=== PATIENT | male | born 1960 | race Asian ===

== ENCOUNTER 2020-11-03 08:51 | Inpatient (IN) | payer OTHER ==
[2020-11-03] MEDS ORDERED: ACETAMINOPHEN INJECTION 100 ML IVPB ONE ×2 (09:06→23:08)
[2020-11-03] MEDS ORDERED: PIPERACILLIN/TAZOB 3.375 GM 3.375 GM in DEXTROSE 5%-WATER - 50 ML IVPB ONE (09:10)
[2020-11-03] MEDS ORDERED: VANCOMYCIN 1 GM in D5W (PRE-DOCKED) 1,000 MG/250 ML IVPB ONE (09:10)
[2020-11-03] MEDS ORDERED: LORazepam 2 MG/ML SDV VIAL ONE (09:25)
[2020-11-03] MEDS ORDERED: PIPERACILLIN/TAZOB 3.375 GM 3.375 GM/50 ML BAG IVPB ONE ×2 (09:28→20:35)
[2020-11-03] MEDS ORDERED: LORazepam 2 MG/ML SDV VIAL IVPUSH ONE (09:28)
[2020-11-03] MEDS ORDERED: LACTATED RINGERS SOLUTION 1000 ML INFUS.BAG IV ONE ×2 (09:28→12:02)
[2020-11-03 10:27] LABS: BASO % 0.2 % (0-2.0); HEMATOCRIT 34.9 % (35.4-49); HEMOGLOBIN 11.4 GM/dL (11.7-16.9); LYMPH % 10.1 % (8-40); MCH 29.9 pg (25.7-33.7); MCHC 32.6 g/dl (32.0-35.9); MEAN CELL VOLUME 91.7 fl (80-96); MEAN PLT VOLUME 8.3 fl (7.5-11.1); MONO % 0.3 % (3.8-10.2); NEUT % 89.4 % (42.8-82.8); PLATELET COUNT 322 K/MM3 (134-434); RDW 13.8 % (11.9-15.9); WHITE BLOOD COUNT 11.9 K/mm3 (4.0-10.0)
[2020-11-03 10:43] LABS: INR 1.18 (0.83-1.09); PROTHROMBIN TIME (PATIENT) 14.4 SEC (9.7-13.0)
[2020-11-03 10:46] LABS: ACTIVATED PTT 50.7 SECONDS (25.2-36.5)
[2020-11-03 10:48] LABS: VENOUS BASE EXCESS -0.8 mmol/L (-2-2); VENOUS O2 SATURATION 62.9 % (70-80); VENOUS PCO2 42.2 mmHg (38-52); VENOUS PH 7.379 (7.310-7.410)
[2020-11-03 10:53] LABS: CHLORIDE 111 mmol/L (98-107); POTASSIUM 3.8 mmol/L (3.5-5.1); SODIUM 147 mmol/L (136-145)
[2020-11-03 10:54] LABS: CALCIUM 8.3 mg/dL (8.5-10.1)
[2020-11-03 10:55] LABS: ALBUMIN 2.2 g/dl (3.4-5.0); ANION GAP 9 MMOL/L (8-16); BLOOD UREA NITROGEN 41.5 mg/dL (7-18); CO2 26 mmol/L (21-32); GLUCOSE,RANDOM 193 mg/dL (74-106); MAGNESIUM 2.4 mg/dL (1.8-2.4)
[2020-11-03 10:58] LABS: PHOSPHOROUS 2.2 mg/dL (2.5-4.9); SGOT/AST 203 U/L (15-37); SGPT/ALT 223 U/L (13-61)
[2020-11-03 11:00] LABS: BILIRUBIN,TOTAL 0.9 mg/dL (0.2-1); TOT PROT 7.2 g/dl (6.4-8.2)
[2020-11-03 11:01] LABS: ALK PHOS 303 U/L (45-117)
[2020-11-03 11:03] LABS: N-TERMINAL BNP 352.6 pg/ml (5-125)
[2020-11-03 11:16] LABS: EPI CELLS 1 /uL (0-25.1); HYALINE CASTS 1 /uL (0-3.1); URINE APPEARANCE CLOUDY; URINE BILIRUBIN 1+ (NEGATIVE); URINE COLOR DK YELLOW; URINE GLUCOSE (UA) NEGATIVE (NEGATIVE); URINE KETONE NEGATIVE (NEGATIVE); URINE LEUK ESTERASE 3+ (NEGATIVE); URINE NITRITE POSITIVE (NEGATIVE); URINE PROTEIN 1+ (NEGATIVE); URINE RBC 3854 /uL (0-23.9); URINE WBC 542 /uL (0-25.8)
[2020-11-03 12:31] LABS: LDH 509 U/L (87-246)
[2020-11-03] MEDS ORDERED: LACTATED RINGERS SOLUTION 1,000 ML/1,000 ML INFUS.BAG IV SCH (13:45)
[2020-11-03 13:51] LABS: ANISOCYTOSIS 1+; MACROCYTOSIS 1+; PLATELET ESTIMATE NORMAL
[2020-11-03] MEDS ORDERED: LACTATED RINGERS SOLUTION 1,000 ML IV SCH ×2 (14:45→17:54)
[2020-11-03] MEDS: PIPERACILLIN/TAZOB 3.375 GM 3.375 GM in DEXTROSE 5%-WATER - 50 ML IVPB SCH (20:43)
[2020-11-03] MEDS ORDERED: HEPARIN NA (PORCINE) 5,000 UNITS/ML 1ML VIAL SQ SCH (22:00)
[2020-11-03] MEDS ORDERED: HEPARIN NA (PORCINE) 5,000 UNITS/ML 1ML VIAL ONE (22:14)
[2020-11-03] MEDS ORDERED: ACETAMINOPHEN 1000 MG/100 ML VIAL (NON FORMULARY) IVPB ONE (22:54)
[2020-11-04] MEDS ORDERED: PIPERACILLIN/TAZOBACTAM 3.375 GM VIAL IVPB ONE ×2 (01:16→09:54)
[2020-11-04] MEDS ORDERED: DEXTROSE 5%-WATER - 50 ML IVPB ONE ×4 (01:16→16:05)
[2020-11-04] MEDS ORDERED: FLU VACCINE (FLULAVAL) PF 60 MCG/0.5 ML SYRINGE 2020-2021 IM ONE (02:11)
[2020-11-04] MEDS: LACTATED RINGERS SOLUTION 1,000 ML IV SCH (02:30)
[2020-11-04] MEDS: PIPERACILLIN/TAZOB 3.375 GM 3.375 GM in DEXTROSE 5%-WATER - 50 ML IVPB SCH (02:45)
[2020-11-04] MEDS: MUPIROCIN 2% TOPICAL OINTMENT FOR DECOLONIZATION NS SCH ×3 (03:30→21:43)
[2020-11-04 07:26] LABS: BASO % 0.2 % (0-2.0); HEMOGLOBIN 10.2 GM/dL (11.7-16.9); LYMPH % 1.4 % (8-40); MCH 28.8 pg (25.7-33.7); MCHC 31.8 g/dl (32.0-35.9); MEAN CELL VOLUME 90.6 fl (80-96); MEAN PLT VOLUME 8.3 fl (7.5-11.1); MONO % 1.5 % (3.8-10.2); NEUT % 96.9 % (42.8-82.8); PLATELET COUNT 230 K/MM3 (134-434); RBC 3.53 M/mm3 (4.00-5.60)
[2020-11-04 07:45] LABS: WHITE BLOOD COUNT 42.6 K/mm3 (4.0-10.0)
[2020-11-04 07:55] LABS: POTASSIUM 4.7 mmol/L (3.5-5.1)
[2020-11-04 07:59] LABS: ALBUMIN 1.9 g/dl (3.4-5.0)
[2020-11-04 08:00] LABS: CALCIUM 7.6 mg/dL (8.5-10.1)
[2020-11-04 08:02] LABS: MAGNESIUM 2.1 mg/dL (1.8-2.4)
[2020-11-04 08:05] LABS: BILIRUBIN,TOTAL 0.7 mg/dL (0.2-1); CREATININE 4.2 mg/dL (0.55-1.3)
[2020-11-04 08:06] LABS: TOT PROT 5.8 g/dl (6.4-8.2)
[2020-11-04 08:11] LABS: BLOOD UREA NITROGEN 68.4 mg/dL (7-18)
[2020-11-04 09:21] LABS: ANISOCYTOSIS 0; HELMET CELLS 0; HOWELL-JOLLY BODIES 0; MACROCYTOSIS 0; OVALOCYTE 0; PLATELET ESTIMATE NORMAL; ROULEAU 0; SICKELED CELLS 0; TARGET CELLS 0; TEAR DROP CELLS 0; TOXIC GRANULATION 0
[2020-11-04] MEDS ORDERED: PIPERACILLIN/TAZOB 3.375 GM 3.375 GM in DEXTROSE 5%-WATER - 50 ML IVPB SCH ×3 (10:00→18:00)
[2020-11-04] MEDS: HEPARIN NA (PORCINE) 5,000 UNITS/ML 1ML VIAL SQ SCH ×2 (10:13→21:43)
[2020-11-04] MEDS ORDERED: PIPERACILLIN/TAZOBACTAM 2.25 GM VIAL IVPB ONE ×2 (10:28→16:05)
[2020-11-04] MEDS: PIPERACILLIN/TAZOB 2.25 GM 2.25 GM in DEXTROSE 5%-WATER - 50 ML IVPB SCH ×2 (10:30→18:04)
[2020-11-04] MEDS: CHLORHEXIDINE GLUCONATE 4% CLEANSER FOR DECOLONIZATION TP SCH (21:43)
[2020-11-05] MEDS ORDERED: DEXTROSE 5%-WATER - 50 ML IVPB ONE ×2 (01:25→10:06)
[2020-11-05] MEDS ORDERED: PIPERACILLIN/TAZOBACTAM 2.25 GM VIAL IVPB ONE ×2 (01:25→10:06)
[2020-11-05] MEDS: PIPERACILLIN/TAZOB 2.25 GM 2.25 GM in DEXTROSE 5%-WATER - 50 ML IVPB SCH ×2 (01:34→10:20)
[2020-11-05] MEDS: LACTATED RINGERS SOLUTION 1,000 ML IV SCH ×2 (01:35→10:21)
[2020-11-05] MEDS ORDERED: SCOPOLAMINE HYDROBROMIDE 1 PATCH PATCH.TD72 TD SCH (10:00)
[2020-11-05] MEDS: HEPARIN NA (PORCINE) 5,000 UNITS/ML 1ML VIAL SQ SCH ×2 (10:21→22:00)
[2020-11-05] MEDS: MUPIROCIN 2% TOPICAL OINTMENT FOR DECOLONIZATION NS SCH ×2 (10:21→22:00)
[2020-11-05] MEDS ORDERED: MEROPENEM 500 MG in DEXTROSE 5%-WATER 100 ML IVPB ONE (10:45)
[2020-11-05] MEDS ORDERED: MEROPENEM 500 MG VIAL (RESTRICTED TO ID) IVPB ONE (11:15)
[2020-11-05] MEDS ORDERED: DEXTROSE 5%-WATER 100 ML IVPB ONE (11:15)
[2020-11-05 12:17] LABS: BASO % 1.1 % (0-2.0); EOS % 0.4 % (0-4.5); HEMATOCRIT 26.9 % (35.4-49); HEMOGLOBIN 8.8 GM/dL (11.7-16.9); MCH 29.2 pg (25.7-33.7); MCHC 32.7 g/dl (32.0-35.9); MEAN CELL VOLUME 89.2 fl (80-96); MEAN PLT VOLUME 8.5 fl (7.5-11.1); MONO % 1.5 % (3.8-10.2); PLATELET COUNT 173 K/MM3 (134-434); RBC 3.01 M/mm3 (4.00-5.60); RDW 13.8 % (11.9-15.9); WHITE BLOOD COUNT 25.7 K/mm3 (4.0-10.0)
[2020-11-05 12:34] LABS: POTASSIUM 4.6 mmol/L (3.5-5.1)
[2020-11-05 12:36] LABS: CALCIUM 7.5 mg/dL (8.5-10.1)
[2020-11-05 12:37] LABS: ALBUMIN 1.6 g/dl (3.4-5.0); MAGNESIUM 2.8 mg/dL (1.8-2.4)
[2020-11-05 12:40] LABS: CREATININE 5.9 mg/dL (0.55-1.3); PHOSPHOROUS 6.7 mg/dL (2.5-4.9)
[2020-11-05 12:41] LABS: BILIRUBIN,TOTAL 0.5 mg/dL (0.2-1)
[2020-11-05 13:14] LABS: BLOOD UREA NITROGEN 107.2 mg/dL (7-18)
[2020-11-05 13:29] LABS: ANISOCYTOSIS 1+; MACROCYTOSIS 1+; PLATELET ESTIMATE NORMAL
[2020-11-05] MEDS: CHLORHEXIDINE GLUCONATE 4% CLEANSER FOR DECOLONIZATION TP SCH (22:00)
[2020-11-06 06:55] LABS: BASO % 0.3 % (0-2.0); EOS % 1.3 % (0-4.5); HEMATOCRIT 29.6 % (35.4-49); HEMOGLOBIN 9.8 GM/dL (11.7-16.9); LYMPH % 4.7 % (8-40); MCH 29.4 pg (25.7-33.7); MCHC 33.2 g/dl (32.0-35.9); MEAN CELL VOLUME 88.7 fl (80-96); NEUT % 91.7 % (42.8-82.8); PLATELET COUNT 192 K/MM3 (134-434); RBC 3.34 M/mm3 (4.00-5.60); WHITE BLOOD COUNT 21.1 K/mm3 (4.0-10.0)
[2020-11-06 07:13] LABS: POTASSIUM 4.8 mmol/L (3.5-5.1)
[2020-11-06 07:17] LABS: ALBUMIN 1.7 g/dl (3.4-5.0); CALCIUM 7.6 mg/dL (8.5-10.1)
[2020-11-06 07:21] LABS: CREATININE 6.6 mg/dL (0.55-1.3)
[2020-11-06 07:22] LABS: BILIRUBIN,TOTAL 0.6 mg/dL (0.2-1); TOT PROT 5.4 g/dl (6.4-8.2)
[2020-11-06] MEDS ORDERED: MEROPENEM 500 MG in DEXTROSE 5%-WATER 100 ML IVPB ONE (09:30)
[2020-11-06] MEDS ORDERED: MEROPENEM 500 MG VIAL (RESTRICTED TO ID) IVPB ONE (09:41)
[2020-11-06] MEDS ORDERED: DEXTROSE 5%-WATER 100 ML IVPB ONE (09:41)
[2020-11-06] MEDS: HEPARIN NA (PORCINE) 5,000 UNITS/ML 1ML VIAL SQ SCH ×2 (09:44→21:27)
[2020-11-06] MEDS: MUPIROCIN 2% TOPICAL OINTMENT FOR DECOLONIZATION NS SCH ×2 (09:44→21:27)
[2020-11-06 09:59] LABS: ANISOCYTOSIS 0; MACROCYTOSIS 0; PLATELET ESTIMATE NORMAL
[2020-11-06 20:10] LABS: HEP B CORE AB, TOT Negative (Negative)
[2020-11-06] MEDS: ALBUTEROL SO4 2.5/IPRATROPIUM 0.5 INH SOL 3 ML VIAL.NEB. NEB SCH (20:30)
[2020-11-06] MEDS: CHLORHEXIDINE GLUCONATE 4% CLEANSER FOR DECOLONIZATION TP SCH (21:27)
[2020-11-07 06:59] LABS: BASO % 0.1 % (0-2.0); HEMOGLOBIN 10.2 GM/dL (11.7-16.9); LYMPH % 6.2 % (8-40); MCH 29.3 pg (25.7-33.7); MCHC 32.8 g/dl (32.0-35.9); MEAN CELL VOLUME 89.2 fl (80-96); MEAN PLT VOLUME 9.2 fl (7.5-11.1); MONO % 3.5 % (3.8-10.2); NEUT % 88.2 % (42.8-82.8); PLATELET COUNT 195 K/MM3 (134-434); RBC 3.47 M/mm3 (4.00-5.60); RDW 13.8 % (11.9-15.9)
[2020-11-07 07:21] LABS: POTASSIUM 5.3 mmol/L (3.5-5.1)
[2020-11-07 07:26] LABS: ALBUMIN 1.7 g/dl (3.4-5.0)
[2020-11-07 07:29] LABS: CREATININE 6.9 mg/dL (0.55-1.3)
[2020-11-07 07:30] LABS: BILIRUBIN,TOTAL 0.5 mg/dL (0.2-1); TOT PROT 5.3 g/dl (6.4-8.2)
[2020-11-07 07:33] LABS: BLOOD UREA NITROGEN 131.2 mg/dL (7-18)
[2020-11-07] MEDS: ALBUTEROL SO4 2.5/IPRATROPIUM 0.5 INH SOL 3 ML VIAL.NEB. NEB SCH ×3 (08:10→20:35)
[2020-11-07] MEDS ORDERED: MEROPENEM 500 MG VIAL (RESTRICTED TO ID) IVPB ONE (09:33)
[2020-11-07] MEDS ORDERED: DEXTROSE 5%-WATER 100 ML IVPB ONE (09:33)
[2020-11-07] MEDS: MEROPENEM 500 MG in DEXTROSE 5%-WATER 100 ML IVPB SCH (09:37)
[2020-11-07] MEDS: PANTOPRAZOLE SODIUM 40 MG VIAL IVPUSH SCH (09:40)
[2020-11-07] MEDS: HEPARIN NA (PORCINE) 5,000 UNITS/ML 1ML VIAL SQ SCH ×2 (09:40→22:23)
[2020-11-07] MEDS: ASPIRIN 81 MG CHEWABLE TABLETS PEG SCH (09:40)
[2020-11-07] MEDS: MUPIROCIN 2% TOPICAL OINTMENT FOR DECOLONIZATION NS SCH ×2 (09:40→22:24)
[2020-11-07 09:44] LABS: ANISOCYTOSIS 0; MACROCYTOSIS 0; PLATELET ESTIMATE NORMAL
[2020-11-07] MEDS ORDERED: SODIUM CHLORIDE 250 ML IV PRN (11:16)
[2020-11-07 14:49] VITALS: BMI 27.1
[2020-11-07] MEDS: CHLORHEXIDINE GLUCONATE 4% CLEANSER FOR DECOLONIZATION TP SCH (22:23)
[2020-11-08] MEDS ORDERED: SODIUM CHLORIDE 250 ML IV PRN (06:45)
[2020-11-08] MEDS: ALBUTEROL SO4 2.5/IPRATROPIUM 0.5 INH SOL 3 ML VIAL.NEB. NEB SCH ×5 (08:00→20:35)
[2020-11-08 08:46] LABS: BASO % 0.3 % (0-2.0); EOS % 2.7 % (0-4.5); HEMATOCRIT 28.9 % (35.4-49); HEMOGLOBIN 9.8 GM/dL (11.7-16.9); LYMPH % 7.5 % (8-40); MEAN CELL VOLUME 88.1 fl (80-96); MEAN PLT VOLUME 9.1 fl (7.5-11.1); MONO % 3.8 % (3.8-10.2); NEUT % 85.7 % (42.8-82.8); PLATELET COUNT 219 K/MM3 (134-434); RBC 3.28 M/mm3 (4.00-5.60); RDW 13.3 % (11.9-15.9); WHITE BLOOD COUNT 9.6 K/mm3 (4.0-10.0)
[2020-11-08 09:23] LABS: CALCIUM 7.7 mg/dL (8.5-10.1)
[2020-11-08 09:24] LABS: CREATININE 5.2 mg/dL (0.55-1.3); PHOSPHOROUS 6.5 mg/dL (2.5-4.9)
[2020-11-08 09:25] LABS: BLOOD UREA NITROGEN 88.7 mg/dL (7-18); POTASSIUM 4.5 mmol/L (3.5-5.1)
[2020-11-08] MEDS ORDERED: MUPIROCIN 2% TOPICAL OINTMENT FOR DECOLONIZATION NS SCH (10:00)
[2020-11-08] MEDS ORDERED: MEROPENEM 500 MG VIAL (RESTRICTED TO ID) IVPB ONE (10:02)
[2020-11-08] MEDS ORDERED: DEXTROSE 5%-WATER 100 ML IVPB ONE (10:03)
[2020-11-08] MEDS: ASPIRIN 81 MG CHEWABLE TABLETS PEG SCH (10:42)
[2020-11-08] MEDS: HEPARIN NA (PORCINE) 5,000 UNITS/ML 1ML VIAL SQ SCH ×2 (10:43→22:36)
[2020-11-08] MEDS: MEROPENEM 500 MG in DEXTROSE 5%-WATER 100 ML IVPB SCH (10:44)
[2020-11-08] MEDS: PANTOPRAZOLE SODIUM 40 MG VIAL IVPUSH SCH (10:45)
[2020-11-08 11:13] LABS: ANISOCYTOSIS 0; MACROCYTOSIS 0; PLATELET ESTIMATE NORMAL
[2020-11-08 11:33] LABS: ALBUMIN 1.8 g/dl (3.4-5.0)
[2020-11-08 11:38] LABS: BILIRUBIN,TOTAL 0.4 mg/dL (0.2-1); TOT PROT 5.3 g/dl (6.4-8.2)
[2020-11-08] MEDS: SCOPOLAMINE HYDROBROMIDE 1 PATCH PATCH.TD72 TD SCH (11:40)
[2020-11-08] MEDS ORDERED: CHLORHEXIDINE GLUCONATE 4% CLEANSER FOR DECOLONIZATION TP SCH (22:00)
[2020-11-09] MEDS: ALBUTEROL SO4 2.5/IPRATROPIUM 0.5 INH SOL 3 ML VIAL.NEB. NEB SCH ×3 (08:15→20:51)
[2020-11-09 08:46] LABS: BASO % 0.2 % (0-2.0); EOS % 2.6 % (0-4.5); HEMATOCRIT 26.9 % (35.4-49); HEMOGLOBIN 8.9 GM/dL (11.7-16.9); LYMPH % 9.8 % (8-40); MCH 29.4 pg (25.7-33.7); MCHC 33.2 g/dl (32.0-35.9); MEAN CELL VOLUME 88.4 fl (80-96); MEAN PLT VOLUME 9.3 fl (7.5-11.1); MONO % 4.6 % (3.8-10.2); NEUT % 82.8 % (42.8-82.8); PLATELET COUNT 235 K/MM3 (134-434); RBC 3.05 M/mm3 (4.00-5.60); RDW 13.6 % (11.9-15.9); WHITE BLOOD COUNT 9.3 K/mm3 (4.0-10.0)
[2020-11-09 09:00] LABS: POTASSIUM 4.3 mmol/L (3.5-5.1)
[2020-11-09 09:11] LABS: BLOOD UREA NITROGEN 77.8 mg/dL (7-18); CALCIUM 7.9 mg/dL (8.5-10.1)
[2020-11-09 09:12] LABS: ALBUMIN 1.9 g/dl (3.4-5.0); MAGNESIUM 2.4 mg/dL (1.8-2.4)
[2020-11-09 09:14] LABS: CREATININE 4.4 mg/dL (0.55-1.3); PHOSPHOROUS 5.8 mg/dL (2.5-4.9)
[2020-11-09 09:15] LABS: BILIRUBIN,TOTAL 0.4 mg/dL (0.2-1); TOT PROT 5.3 g/dl (6.4-8.2)
[2020-11-09] MEDS ORDERED: MEROPENEM 500 MG VIAL (RESTRICTED TO ID) IVPB ONE (10:12)
[2020-11-09] MEDS ORDERED: DEXTROSE 5%-WATER 100 ML IVPB ONE (10:12)
[2020-11-09] MEDS: PANTOPRAZOLE SODIUM 40 MG VIAL IVPUSH SCH (10:15)
[2020-11-09] MEDS: HEPARIN NA (PORCINE) 5,000 UNITS/ML 1ML VIAL SQ SCH ×2 (10:15→21:14)
[2020-11-09] MEDS: ASPIRIN 81 MG CHEWABLE TABLETS PEG SCH (10:16)
[2020-11-09] MEDS: MEROPENEM 500 MG in DEXTROSE 5%-WATER 100 ML IVPB SCH (10:16)
[2020-11-09 11:24] LABS: ANISOCYTOSIS 0; MACROCYTOSIS 0; PLATELET ESTIMATE NORMAL
[2020-11-09] MEDS ORDERED: SODIUM CHLORIDE 1,000 ML IV SCH (12:45)
[2020-11-10] MEDS ORDERED: PT OWN MED DRAWER 7, Y5N ONE (06:47)
[2020-11-10] MEDS: ALBUTEROL SO4 2.5/IPRATROPIUM 0.5 INH SOL 3 ML VIAL.NEB. NEB SCH ×3 (08:20→20:05)
[2020-11-10 09:28] LABS: BASO % 0.3 % (0-2.0); HEMATOCRIT 25.3 % (35.4-49); HEMOGLOBIN 8.5 GM/dL (11.7-16.9); LYMPH % 12.2 % (8-40); MCH 29.9 pg (25.7-33.7); MCHC 33.6 g/dl (32.0-35.9); MEAN PLT VOLUME 9.1 fl (7.5-11.1); MONO % 4.6 % (3.8-10.2); NEUT % 80.9 % (42.8-82.8); PLATELET COUNT 264 K/MM3 (134-434); RBC 2.84 M/mm3 (4.00-5.60); RDW 13.5 % (11.9-15.9); WHITE BLOOD COUNT 9.5 K/mm3 (4.0-10.0)
[2020-11-10 09:42] LABS: POTASSIUM 4.4 mmol/L (3.5-5.1)
[2020-11-10 09:56] LABS: ALBUMIN 1.9 g/dl (3.4-5.0); CALCIUM 7.4 mg/dL (8.5-10.1)
[2020-11-10] MEDS: ASPIRIN 81 MG CHEWABLE TABLETS PEG SCH ×2 (10:00→10:05)
[2020-11-10] MEDS ORDERED: MEROPENEM 500 MG VIAL (RESTRICTED TO ID) IVPB ONE (10:00)
[2020-11-10 10:01] LABS: BILIRUBIN,TOTAL 0.5 mg/dL (0.2-1); TOT PROT 5.2 g/dl (6.4-8.2)
[2020-11-10] MEDS ORDERED: DEXTROSE 5%-WATER 100 ML IVPB ONE (10:01)
[2020-11-10] MEDS: MEROPENEM 500 MG in DEXTROSE 5%-WATER 100 ML IVPB SCH (10:04)
[2020-11-10] MEDS: HEPARIN NA (PORCINE) 5,000 UNITS/ML 1ML VIAL SQ SCH ×2 (10:05→21:04)
[2020-11-10] MEDS: PANTOPRAZOLE SODIUM 40 MG VIAL IVPUSH SCH (11:04)
[2020-11-10] MEDS ORDERED: SODIUM CHLORIDE 250 ML IV PRN (11:28)
[2020-11-10 11:46] LABS: ANISOCYTOSIS 0; MACROCYTOSIS 0; PLATELET ESTIMATE NORMAL
[2020-11-11] MEDS: ALBUTEROL SO4 2.5/IPRATROPIUM 0.5 INH SOL 3 ML VIAL.NEB. NEB SCH ×3 (08:20→20:58)
[2020-11-11 08:51] LABS: BASO % 0.3 % (0-2.0); EOS % 1.6 % (0-4.5); HEMATOCRIT 26.8 % (35.4-49); LYMPH % 11.2 % (8-40); MCH 29.8 pg (25.7-33.7); MCHC 33.5 g/dl (32.0-35.9); MEAN CELL VOLUME 88.9 fl (80-96); MEAN PLT VOLUME 8.9 fl (7.5-11.1); MONO % 4.9 % (3.8-10.2); PLATELET COUNT 298 K/MM3 (134-434); RBC 3.01 M/mm3 (4.00-5.60); RDW 13.4 % (11.9-15.9); WHITE BLOOD COUNT 8.1 K/mm3 (4.0-10.0)
[2020-11-11] MEDS ORDERED: MEROPENEM 500 MG VIAL (RESTRICTED TO ID) IVPB ONE (09:03)
[2020-11-11] MEDS ORDERED: PT OWN MED DRAWER 7, Y5N ONE (09:04)
[2020-11-11] MEDS ORDERED: DEXTROSE 5%-WATER 100 ML IVPB ONE (09:04)
[2020-11-11 09:06] LABS: POTASSIUM 3.8 mmol/L (3.5-5.1)
[2020-11-11] MEDS: MEROPENEM 500 MG in DEXTROSE 5%-WATER 100 ML IVPB SCH (09:12)
[2020-11-11] MEDS: ASPIRIN 81 MG CHEWABLE TABLETS PEG SCH (09:12)
[2020-11-11] MEDS: HEPARIN NA (PORCINE) 5,000 UNITS/ML 1ML VIAL SQ SCH ×2 (09:12→21:15)
[2020-11-11] MEDS: SCOPOLAMINE HYDROBROMIDE 1 PATCH PATCH.TD72 TD SCH (09:13)
[2020-11-11] MEDS: PANTOPRAZOLE SODIUM 40 MG VIAL IVPUSH SCH (09:13)
[2020-11-11 09:17] LABS: CALCIUM 7.7 mg/dL (8.5-10.1)
[2020-11-11 09:18] LABS: MAGNESIUM 2.3 mg/dL (1.8-2.4)
[2020-11-11 09:19] LABS: ALBUMIN 1.9 g/dl (3.4-5.0)
[2020-11-11 09:22] LABS: CREATININE 3.2 mg/dL (0.55-1.3); PHOSPHOROUS 4.9 mg/dL (2.5-4.9)
[2020-11-11 09:23] LABS: BILIRUBIN,TOTAL 0.3 mg/dL (0.2-1); TOT PROT 5.3 g/dl (6.4-8.2)
[2020-11-11 09:46] LABS: BLOOD UREA NITROGEN 47.1 mg/dL (7-18)
[2020-11-11 11:09] LABS: ANISOCYTOSIS 1+; MACROCYTOSIS 0; PLATELET ESTIMATE NORMAL
[2020-11-12] MEDS: ALBUTEROL SO4 2.5/IPRATROPIUM 0.5 INH SOL 3 ML VIAL.NEB. NEB SCH ×3 (08:30→20:10)
[2020-11-12 09:49] LABS: HEMATOCRIT 27.7 % (35.4-49); HEMOGLOBIN 9.3 GM/dL (11.7-16.9); MCHC 33.7 g/dl (32.0-35.9); MEAN CELL VOLUME 88.9 fl (80-96); MEAN PLT VOLUME 8.8 fl (7.5-11.1); PLATELET COUNT 372 K/MM3 (134-434); RBC 3.12 M/mm3 (4.00-5.60); RDW 13.8 % (11.9-15.9)
[2020-11-12 10:08] LABS: POTASSIUM 4.1 mmol/L (3.5-5.1)
[2020-11-12] MEDS ORDERED: DEXTROSE 5%-WATER 100 ML IVPB ONE (10:09)
[2020-11-12] MEDS ORDERED: MEROPENEM 500 MG VIAL (RESTRICTED TO ID) IVPB ONE (10:09)
[2020-11-12] MEDS ORDERED: PT OWN MED DRAWER 7, Y5N ONE (10:09)
[2020-11-12] MEDS: MEROPENEM 500 MG in DEXTROSE 5%-WATER 100 ML IVPB SCH (10:14)
[2020-11-12] MEDS: PANTOPRAZOLE SODIUM 40 MG VIAL IVPUSH SCH (10:15)
[2020-11-12] MEDS: HEPARIN NA (PORCINE) 5,000 UNITS/ML 1ML VIAL SQ SCH ×2 (10:16→21:00)
[2020-11-12] MEDS: ASPIRIN 81 MG CHEWABLE TABLETS PEG SCH (10:17)
[2020-11-12] MEDS: ACETAMINOPHEN 650 MG/20.3 ML ORAL SOLUTION (CUPS) GT PRN (10:24)
[2020-11-12 10:26] LABS: CALCIUM 8.4 mg/dL (8.5-10.1)
[2020-11-12 10:30] LABS: CREATININE 3.7 mg/dL (0.55-1.3)
[2020-11-12 10:31] LABS: TOT PROT 5.6 g/dl (6.4-8.2)
[2020-11-12 10:47] LABS: BILIRUBIN,TOTAL 0.2 mg/dL (0.2-1)
[2020-11-13] MEDS ORDERED: SODIUM CHLORIDE 250 ML IV PRN ×2 (00:01)
[2020-11-13] MEDS: ALBUTEROL SO4 2.5/IPRATROPIUM 0.5 INH SOL 3 ML VIAL.NEB. NEB SCH ×3 (07:55→20:05)
[2020-11-13 07:57] LABS: HEMATOCRIT 25.9 % (35.4-49); HEMOGLOBIN 8.6 GM/dL (11.7-16.9); MCH 29.9 pg (25.7-33.7); MCHC 33.4 g/dl (32.0-35.9); MEAN CELL VOLUME 89.6 fl (80-96); MEAN PLT VOLUME 8.7 fl (7.5-11.1); PLATELET COUNT 370 K/MM3 (134-434); RBC 2.89 M/mm3 (4.00-5.60); WHITE BLOOD COUNT 8.4 K/mm3 (4.0-10.0)
[2020-11-13 08:24] LABS: CALCIUM 8.3 mg/dL (8.5-10.1)
[2020-11-13 08:28] LABS: CREATININE 3.8 mg/dL (0.55-1.3)
[2020-11-13 08:30] LABS: BILIRUBIN,TOTAL 0.4 mg/dL (0.2-1); TOT PROT 5.4 g/dl (6.4-8.2)
[2020-11-13] MEDS ORDERED: MEROPENEM 500 MG VIAL (RESTRICTED TO ID) IVPB ONE (10:45)
[2020-11-13] MEDS ORDERED: DEXTROSE 5%-WATER 100 ML IVPB ONE (10:46)
[2020-11-13] MEDS: ASPIRIN 81 MG CHEWABLE TABLETS PEG SCH (10:52)
[2020-11-13] MEDS: PANTOPRAZOLE SODIUM 40 MG VIAL IVPUSH SCH (11:45)
[2020-11-13] MEDS: MEROPENEM 500 MG in DEXTROSE 5%-WATER 100 ML IVPB SCH (11:45)
[2020-11-13] MEDS: HEPARIN NA (PORCINE) 5,000 UNITS/ML 1ML VIAL SQ SCH (11:47)
[2020-11-13] MEDS: APIXABAN 5 MG TABLET PO SCH ×2 (13:38→21:44)
[2020-11-13] MEDS ORDERED: PT OWN MED DRAWER 7, Y5N ONE (16:03)
[2020-11-13] MEDS: VANCOMYCIN 250 MG/5 ML ORAL SOLUTION PO SCH ×2 (18:20→23:41)
[2020-11-14] MEDS: VANCOMYCIN 250 MG/5 ML ORAL SOLUTION PO SCH (05:05)
[2020-11-14] MEDS: ALBUTEROL SO4 2.5/IPRATROPIUM 0.5 INH SOL 3 ML VIAL.NEB. NEB SCH ×3 (09:00→21:55)
[2020-11-14] MEDS ORDERED: MEROPENEM 500 MG VIAL (RESTRICTED TO ID) IVPB ONE (09:16)
[2020-11-14] MEDS ORDERED: DEXTROSE 5%-WATER 100 ML IVPB ONE (09:17)
[2020-11-14] MEDS ORDERED: PT OWN MED DRAWER 7, Y5N ONE (09:17)
[2020-11-14] MEDS: PANTOPRAZOLE SODIUM 40 MG VIAL IVPUSH SCH (09:26)
[2020-11-14] MEDS: ASPIRIN 81 MG CHEWABLE TABLETS PEG SCH (09:28)
[2020-11-14] MEDS: SCOPOLAMINE HYDROBROMIDE 1 PATCH PATCH.TD72 TD SCH (09:29)
[2020-11-14] MEDS: APIXABAN 5 MG TABLET PO SCH ×2 (09:29→23:28)
[2020-11-14] MEDS: MEROPENEM 500 MG in DEXTROSE 5%-WATER 100 ML IVPB SCH (09:33)
[2020-11-14 10:43] LABS: BLOOD UREA NITROGEN 41.7 mg/dL (7-18)
[2020-11-14] MEDS: VANCOMYCIN 250 MG/5 ML ORAL SOLUTION PEG SCH ×3 (13:31→23:31)
[2020-11-14] MEDS: ACETAMINOPHEN 650 MG/20.3 ML ORAL SOLUTION (CUPS) GT PRN (13:36)
[2020-11-15] MEDS: VANCOMYCIN 250 MG/5 ML ORAL SOLUTION PEG SCH ×4 (05:09→23:10)
[2020-11-15 09:02] LABS: POTASSIUM 4.2 mmol/L (3.5-5.1)
[2020-11-15 09:04] LABS: ALBUMIN 2.1 g/dl (3.4-5.0); BLOOD UREA NITROGEN 50.5 mg/dL (7-18); CALCIUM 8.9 mg/dL (8.5-10.1)
[2020-11-15 09:08] LABS: CREATININE 3.3 mg/dL (0.55-1.3)
[2020-11-15 09:10] LABS: BILIRUBIN,TOTAL 0.2 mg/dL (0.2-1); TOT PROT 5.8 g/dl (6.4-8.2)
[2020-11-15 09:17] LABS: BASO % 0.3 % (0-2.0); EOS % 1.6 % (0-4.5); HEMATOCRIT 25.8 % (35.4-49); HEMOGLOBIN 8.8 GM/dL (11.7-16.9); LYMPH % 8.6 % (8-40); MCH 30.1 pg (25.7-33.7); MEAN CELL VOLUME 88.7 fl (80-96); MEAN PLT VOLUME 8.2 fl (7.5-11.1); MONO % 4.7 % (3.8-10.2); NEUT % 84.8 % (42.8-82.8); PLATELET COUNT 395 K/MM3 (134-434); RBC 2.91 M/mm3 (4.00-5.60); RDW 13.8 % (11.9-15.9); WHITE BLOOD COUNT 8.4 K/mm3 (4.0-10.0)
[2020-11-15] MEDS ORDERED: MEROPENEM 500 MG VIAL (RESTRICTED TO ID) IVPB ONE (09:54)
[2020-11-15] MEDS ORDERED: DEXTROSE 5%-WATER 100 ML IVPB ONE (09:54)
[2020-11-15] MEDS: MEROPENEM 500 MG in DEXTROSE 5%-WATER 100 ML IVPB SCH (09:57)
[2020-11-15] MEDS: APIXABAN 5 MG TABLET PO SCH ×2 (09:57→21:32)
[2020-11-15] MEDS: ASPIRIN 81 MG CHEWABLE TABLETS PEG SCH (09:58)
[2020-11-15 11:33] LABS: ANISOCYTOSIS 3+; MACROCYTOSIS 0; PLATELET ESTIMATE NORMAL
[2020-11-15] MEDS: SILVER SULFADIAZINE 1% TOP CREAM 50 GM JAR TP SCH (11:51)
[2020-11-15] MEDS: PANTOPRAZOLE SODIUM 40 MG VIAL IVPUSH SCH (11:51)
[2020-11-15] MEDS: ALBUTEROL SO4 2.5/IPRATROPIUM 0.5 INH SOL 3 ML VIAL.NEB. NEB SCH ×2 (13:42→20:44)
[2020-11-16] MEDS: VANCOMYCIN 250 MG/5 ML ORAL SOLUTION PEG SCH ×4 (06:13→23:13)
[2020-11-16] MEDS: ALBUTEROL SO4 2.5/IPRATROPIUM 0.5 INH SOL 3 ML VIAL.NEB. NEB SCH ×4 (07:35→20:35)
[2020-11-16 09:33] LABS: BASO % 0.3 % (0-2.0); EOS % 1.3 % (0-4.5); HEMATOCRIT 25.2 % (35.4-49); HEMOGLOBIN 8.6 GM/dL (11.7-16.9); LYMPH % 12.2 % (8-40); MCH 30.1 pg (25.7-33.7); MCHC 34.2 g/dl (32.0-35.9); MEAN CELL VOLUME 87.9 fl (80-96); MONO % 5.3 % (3.8-10.2); NEUT % 80.9 % (42.8-82.8); PLATELET COUNT 380 K/MM3 (134-434); RBC 2.87 M/mm3 (4.00-5.60); RDW 13.6 % (11.9-15.9); WHITE BLOOD COUNT 7.5 K/mm3 (4.0-10.0)
[2020-11-16 09:57] LABS: POTASSIUM 4.4 mmol/L (3.5-5.1)
[2020-11-16 10:12] LABS: BLOOD UREA NITROGEN 57.4 mg/dL (7-18); CALCIUM 8.9 mg/dL (8.5-10.1)
[2020-11-16 10:14] LABS: ALBUMIN 2.1 g/dl (3.4-5.0)
[2020-11-16 10:16] LABS: CREATININE 3.1 mg/dL (0.55-1.3)
[2020-11-16 10:18] LABS: BILIRUBIN,TOTAL 0.2 mg/dL (0.2-1)
[2020-11-16 10:19] LABS: TOT PROT 5.6 g/dl (6.4-8.2)
[2020-11-16] MEDS ORDERED: MEROPENEM 500 MG VIAL (RESTRICTED TO ID) IVPB ONE (10:44)
[2020-11-16] MEDS ORDERED: PT OWN MED DRAWER 7, Y5N ONE (10:45)
[2020-11-16] MEDS ORDERED: DEXTROSE 5%-WATER 100 ML IVPB ONE (10:45)
[2020-11-16] MEDS: MEROPENEM 500 MG in DEXTROSE 5%-WATER 100 ML IVPB SCH (10:49)
[2020-11-16] MEDS: APIXABAN 5 MG TABLET PO SCH ×2 (10:50→23:12)
[2020-11-16] MEDS: FAMOTIDINE 40 MG/5 ML ORAL SUSPENSION PEG SCH (10:50)
[2020-11-16] MEDS: ASPIRIN 81 MG CHEWABLE TABLETS PEG SCH (10:50)
[2020-11-16 11:47] LABS: ANISOCYTOSIS 3+; MACROCYTOSIS 0; PLATELET ESTIMATE NORMAL; TARGET CELLS 1+
[2020-11-16 14:07] LABS: DRVVT - 69.3 sec (0.0-47.0); DRVVT CONFIRM SECONDS 0.9 ratio (0.8-1.2)
[2020-11-16] MEDS: SILVER SULFADIAZINE 1% TOP CREAM 50 GM JAR TP SCH (16:24)
[2020-11-17] MEDS: VANCOMYCIN 250 MG/5 ML ORAL SOLUTION PEG SCH ×4 (05:10→23:54)
[2020-11-17] MEDS: ALBUTEROL SO4 2.5/IPRATROPIUM 0.5 INH SOL 3 ML VIAL.NEB. NEB SCH ×3 (09:05→20:00)
[2020-11-17 10:02] LABS: BASO % 0.5 % (0-2.0); EOS % 1.7 % (0-4.5); HEMATOCRIT 25.5 % (35.4-49); HEMOGLOBIN 8.5 GM/dL (11.7-16.9); LYMPH % 12.5 % (8-40); MCH 29.7 pg (25.7-33.7); MCHC 33.4 g/dl (32.0-35.9); MEAN CELL VOLUME 88.8 fl (80-96); MEAN PLT VOLUME 8.1 fl (7.5-11.1); MONO % 7.8 % (3.8-10.2); NEUT % 77.5 % (42.8-82.8); PLATELET COUNT 359 K/MM3 (134-434); RBC 2.88 M/mm3 (4.00-5.60); RDW 13.7 % (11.9-15.9); WHITE BLOOD COUNT 6.5 K/mm3 (4.0-10.0)
[2020-11-17 10:20] LABS: POTASSIUM 4.6 mmol/L (3.5-5.1)
[2020-11-17 10:41] LABS: CALCIUM 8.8 mg/dL (8.5-10.1)
[2020-11-17 10:42] LABS: ALBUMIN 2.2 g/dl (3.4-5.0); BLOOD UREA NITROGEN 61.9 mg/dL (7-18)
[2020-11-17 10:46] LABS: BILIRUBIN,TOTAL 0.3 mg/dL (0.2-1)
[2020-11-17] MEDS: ASPIRIN 81 MG CHEWABLE TABLETS PEG SCH (11:05)
[2020-11-17] MEDS: SILVER SULFADIAZINE 1% TOP CREAM 50 GM JAR TP SCH (11:05)
[2020-11-17] MEDS: APIXABAN 5 MG TABLET PO SCH ×2 (11:05→21:39)
[2020-11-17] MEDS: FAMOTIDINE 40 MG/5 ML ORAL SUSPENSION PEG SCH (11:05)
[2020-11-17] MEDS: SCOPOLAMINE HYDROBROMIDE 1 PATCH PATCH.TD72 TD SCH (11:05)
[2020-11-18] MEDS: VANCOMYCIN 250 MG/5 ML ORAL SOLUTION PEG SCH ×4 (05:59→23:49)
[2020-11-18] MEDS: ALBUTEROL SO4 2.5/IPRATROPIUM 0.5 INH SOL 3 ML VIAL.NEB. NEB SCH ×3 (09:00→20:10)
[2020-11-18] MEDS ORDERED: PT OWN MED DRAWER 7, Y5N ONE (09:23)
[2020-11-18] MEDS: ASPIRIN 81 MG CHEWABLE TABLETS PEG SCH (09:34)
[2020-11-18] MEDS: APIXABAN 5 MG TABLET PO SCH ×2 (09:34→21:55)
[2020-11-18] MEDS: SILVER SULFADIAZINE 1% TOP CREAM 50 GM JAR TP SCH (09:35)
[2020-11-18] MEDS: FAMOTIDINE 40 MG/5 ML ORAL SUSPENSION PEG SCH (09:35)
[2020-11-18 11:26] LABS: BASO % 0.7 % (0-2.0); HEMATOCRIT 24.8 % (35.4-49); HEMOGLOBIN 8.5 GM/dL (11.7-16.9); LYMPH % 20.1 % (8-40); MCH 30.2 pg (25.7-33.7); MCHC 34.3 g/dl (32.0-35.9); MEAN CELL VOLUME 88.1 fl (80-96); MEAN PLT VOLUME 8.1 fl (7.5-11.1); MONO % 7.8 % (3.8-10.2); NEUT % 69.4 % (42.8-82.8); PLATELET COUNT 332 K/MM3 (134-434); RBC 2.82 M/mm3 (4.00-5.60); RDW 13.8 % (11.9-15.9); WHITE BLOOD COUNT 5.3 K/mm3 (4.0-10.0)
[2020-11-18 11:52] LABS: POTASSIUM 4.6 mmol/L (3.5-5.1)
[2020-11-18 11:56] LABS: CALCIUM 8.8 mg/dL (8.5-10.1)
[2020-11-18 11:57] LABS: ALBUMIN 2.2 g/dl (3.4-5.0); BLOOD UREA NITROGEN 63.2 mg/dL (7-18)
[2020-11-18 12:00] LABS: CREATININE 2.9 mg/dL (0.55-1.3)
[2020-11-18 12:01] LABS: BILIRUBIN,TOTAL 0.3 mg/dL (0.2-1)
[2020-11-18 12:02] LABS: TOT PROT 5.9 g/dl (6.4-8.2)
[2020-11-19] MEDS: VANCOMYCIN 250 MG/5 ML ORAL SOLUTION PEG SCH ×4 (05:16→23:36)
[2020-11-19] MEDS: ALBUTEROL SO4 2.5/IPRATROPIUM 0.5 INH SOL 3 ML VIAL.NEB. NEB SCH ×3 (08:30→20:20)
[2020-11-19] MEDS: APIXABAN 5 MG TABLET PO SCH ×2 (11:10→21:50)
[2020-11-19] MEDS ORDERED: PT OWN MED DRAWER 7, Y5N ONE ×2 (11:50→21:07)
[2020-11-19] MEDS: FAMOTIDINE 40 MG/5 ML ORAL SUSPENSION PEG SCH (12:07)
[2020-11-19] MEDS: SILVER SULFADIAZINE 1% TOP CREAM 50 GM JAR TP SCH (12:07)
[2020-11-19] MEDS: ASPIRIN 81 MG CHEWABLE TABLETS PEG SCH (12:16)
[2020-11-19 12:31] LABS: BASO % 0.4 % (0-2.0); EOS % 2.3 % (0-4.5); HEMATOCRIT 25.9 % (35.4-49); HEMOGLOBIN 8.9 GM/dL (11.7-16.9); LYMPH % 18.2 % (8-40); MCH 30.1 pg (25.7-33.7); MCHC 34.2 g/dl (32.0-35.9); MEAN CELL VOLUME 88.2 fl (80-96); MEAN PLT VOLUME 8.2 fl (7.5-11.1); MONO % 8.1 % (3.8-10.2); PLATELET COUNT 287 K/MM3 (134-434); RBC 2.94 M/mm3 (4.00-5.60); RDW 13.5 % (11.9-15.9); WHITE BLOOD COUNT 4.8 K/mm3 (4.0-10.0)
[2020-11-19 13:10] LABS: POTASSIUM 4.8 mmol/L (3.5-5.1)
[2020-11-19 13:12] LABS: ALBUMIN 2.3 g/dl (3.4-5.0); BLOOD UREA NITROGEN 62.1 mg/dL (7-18); CALCIUM 8.5 mg/dL (8.5-10.1)
[2020-11-19 13:13] LABS: ANISOCYTOSIS 2+; MACROCYTOSIS 0; PLATELET ESTIMATE NORMAL
[2020-11-19 13:15] LABS: CREATININE 2.7 mg/dL (0.55-1.3)
[2020-11-19 13:17] LABS: BILIRUBIN,TOTAL 0.3 mg/dL (0.2-1); TOT PROT 6.1 g/dl (6.4-8.2)
[2020-11-20] MEDS: VANCOMYCIN 250 MG/5 ML ORAL SOLUTION PEG SCH ×2 (05:10→11:05)
[2020-11-20 07:41] VITALS: PULSE 58
[2020-11-20] MEDS: ALBUTEROL SO4 2.5/IPRATROPIUM 0.5 INH SOL 3 ML VIAL.NEB. NEB SCH (07:46)
[2020-11-20 09:13] LABS: BASO % 0.4 % (0-2.0); HEMOGLOBIN 8.4 GM/dL (11.7-16.9); LYMPH % 13.1 % (8-40); MCH 29.9 pg (25.7-33.7); MCHC 33.6 g/dl (32.0-35.9); MEAN CELL VOLUME 88.8 fl (80-96); MEAN PLT VOLUME 8.1 fl (7.5-11.1); MONO % 9.1 % (3.8-10.2); NEUT % 75.4 % (42.8-82.8); PLATELET COUNT 275 K/MM3 (134-434); RBC 2.81 M/mm3 (4.00-5.60); RDW 13.5 % (11.9-15.9); WHITE BLOOD COUNT 5.6 K/mm3 (4.0-10.0)
[2020-11-20 09:49] LABS: POTASSIUM 4.2 mmol/L (3.5-5.1)
[2020-11-20 09:51] LABS: CALCIUM 8.5 mg/dL (8.5-10.1)
[2020-11-20 09:52] LABS: ALBUMIN 2.3 g/dl (3.4-5.0); BLOOD UREA NITROGEN 58.2 mg/dL (7-18)
[2020-11-20 09:55] LABS: CREATININE 2.6 mg/dL (0.55-1.3)
[2020-11-20 09:56] LABS: BILIRUBIN,TOTAL 0.3 mg/dL (0.2-1)
[2020-11-20] MEDS ORDERED: PT OWN MED DRAWER 7, Y5N ONE (10:35)
[2020-11-20] MEDS: FAMOTIDINE 40 MG/5 ML ORAL SUSPENSION PEG SCH (10:51)
[2020-11-20] MEDS: SCOPOLAMINE HYDROBROMIDE 1 PATCH PATCH.TD72 TD SCH (10:52)
[2020-11-20 11:00] VITALS: BP 138/78; TEMP 97.5
[2020-11-20] MEDS: SILVER SULFADIAZINE 1% TOP CREAM 50 GM JAR TP SCH (11:30)
== END 2020-11-20 15:07 | DRG 720 ==
LOC: JER 08:51 → JERBED 15:10 → JICU 11-04 01:09 → J5S 11-08 05:35
PROVIDERS: ADMIT Family Medicine; ATTEND Family Medicine
PROC: 5A1955Z Respiratory Ventilation, Greater than 96 Consecutive Hours (ICD-10-PCS; principal; 2020-11-03)
PROC: 3E0G36Z Introduction of Nutritional Substance into Upper GI, Percutaneous Approach (ICD-10-PCS; 2020-11-03)
PROC: 05HM33Z Insertion of Infusion Device into Right Internal Jugular Vein, Percutaneous Approach (ICD-10-PCS; 2020-11-07)
PROC: B543ZZA Ultrasonography of Right Jugular Veins, Guidance (ICD-10-PCS; 2020-11-07)
PROC: 5A1D70Z Performance of Urinary Filtration, Intermittent, Less than 6 Hours Per Day (ICD-10-PCS; 2020-11-10)
DX: A41.51 Sepsis due to Escherichia coli [E. coli] (principal); N30.01 Acute cystitis with hematuria; Z93.0 Tracheostomy status; E87.2 Acidosis; Z93.1 Gastrostomy status; G92 Toxic encephalopathy; N40.0 Benign prostatic hyperplasia without lower urinary tract symptoms; I80.9 Phlebitis and thrombophlebitis of unspecified site; R65.21 Severe sepsis with septic shock; Z99.11 Dependence on respirator [ventilator] status; J96.10 Chronic respiratory failure, unspecified whether with hypoxia or hypercapnia; I95.9 Hypotension, unspecified; N17.0 Acute kidney failure with tubular necrosis; I63.9 Cerebral infarction, unspecified; I24.8 Other forms of acute ischemic heart disease; D64.9 Anemia, unspecified; A04.72 Enterocolitis due to Clostridium difficile, not specified as recurrent; J98.11 Atelectasis; R00.0 Tachycardia, unspecified; R74.01 Elevation of levels of liver transaminase levels; E87.5 Hyperkalemia
CPT/HCPCS: 36415; 70450-TC; 71045-TC-FY; 74018-TC-FY; 74176-TC; 76705-TC; 80048; 80053; 81003; 81240; 81241; 82550; 82565; 82728; 82803; 82962; 83605; 83615; 83735; 83880; 84100; 84156; 84300; 84436; 84479; 84484; 85025; 85027; 85610; 85613; 85730; 85732; 86704; 86706; 86707; 86708; 86709; 86803; 86900; 87040; 87070; 87086; 87186; 87205; 87324; 87340; 87449; 87804; 93005; 93010; 93971; 94002; 94640; 97116-GP; 97162-GP; 99291; C9803; J0131; J1644; U0003

== ENCOUNTER 2021-03-10 20:01 | Emergency (ER) | payer OTHER ==
[2021-03-10 20:13] VITALS: BP 153/92; TEMP 98.8; BMI 21.2
[2021-03-10] MEDS ORDERED: SODIUM BICARBONATE 325 MG TABLET PO ONE (20:29)
[2021-03-10] MEDS ORDERED: LIPASE/PROTEASE/AMYLASE 36,000 UNIT CAPSULE PO ONE (20:30)
[2021-03-10 21:56] VITALS: PULSE 100
== END 2021-03-10 23:29 ==
LOC: JER 20:01
DX: K94.23 Gastrostomy malfunction (principal)
CPT/HCPCS: 74018-TC-FY; 99283-25

== ENCOUNTER 2021-05-07 15:32 | Inpatient (IN) | payer OTHER ==
[2021-05-07 20:01] LABS: BASO % 0.2 % (0-2.0); EOS % 0.7 % (0-4.5); HEMATOCRIT 43.1 % (35.4-49); HEMOGLOBIN 14.4 GM/dL (11.7-16.9); LYMPH % 15.5 % (8-40); MCHC 33.4 g/dl (32.0-35.9); MEAN PLT VOLUME 7.5 fl (7.5-11.1); MONO % 5.5 % (3.8-10.2); NEUT % 78.1 % (42.8-82.8); PLATELET COUNT 312 10^3/uL (134-434); RBC 4.96 M/mm3 (4.00-5.60); RDW 14.3 % (11.9-15.9); WHITE BLOOD COUNT 8.2 K/mm3 (4.0-10.0)
[2021-05-07 20:08] LABS: INR 1.07 (0.83-1.09); PROTHROMBIN TIME (PATIENT) 12.9 SEC (9.7-13.0)
[2021-05-07 20:10] LABS: ACTIVATED PTT 34.6 SECONDS (25.2-36.5)
[2021-05-07 20:22] LABS: ALBUMIN 3.7 g/dl (3.4-5.0); CALCIUM 9.1 mg/dL (8.5-10.1)
[2021-05-07 20:24] LABS: BLOOD UREA NITROGEN 14.1 mg/dL (7-18)
[2021-05-07 20:26] LABS: BILIRUBIN,TOTAL 0.4 mg/dL (0.2-1); CREATININE 0.6 mg/dL (0.55-1.3)
[2021-05-07 20:27] LABS: TOT PROT 7.3 g/dl (6.4-8.2)
[2021-05-07 23:17] LABS: EPI CELLS 9 /uL (0-25.1); HYALINE CASTS 35 /uL (0-3.1); PH,URINE 6.5 (5.0-8.0); URINE APPEARANCE TURBID; URINE BACTERIA >9,000 /uL (0-1359); URINE BILIRUBIN NEGATIVE (NEGATIVE); URINE COLOR YELLOW; URINE GLUCOSE (UA) NEGATIVE (NEGATIVE); URINE KETONE NEGATIVE (NEGATIVE); URINE LEUK ESTERASE 3+ (NEGATIVE); URINE NITRITE NEGATIVE (NEGATIVE); URINE PROTEIN TRACE (NEGATIVE); URINE RBC 14 /uL (0-23.9); URINE WBC 812 /uL (0-25.8)
[2021-05-08] MEDS ORDERED: CEFTRIAXONE 1 GM in DEXTROSE 5%-WATER - 50 ML IVPB ONE (02:36)
[2021-05-08] MEDS ORDERED: cefTRIAXone SODIUM 1 GM VIAL ONE (03:50)
[2021-05-08] MEDS ORDERED: DEXTROSE 5%-WATER - 50 ML IVPB ONE (03:50)
[2021-05-08] MEDS: DEXTROSE 5%-0.45% SALINE 1,000 ML IV SCH (03:56)
[2021-05-08] MEDS ORDERED: ACETAMINOPHEN 1000 MG/100 ML VIAL (NON FORMULARY) IVPB PRN (04:15)
[2021-05-08 07:19] LABS: BASO % 0.4 % (0-2.0); EOS % 0.6 % (0-4.5); HEMATOCRIT 42.8 % (35.4-49); HEMOGLOBIN 14.5 GM/dL (11.7-16.9); LYMPH % 13.1 % (8-40); MCH 29.5 pg (25.7-33.7); MCHC 33.8 g/dl (32.0-35.9); MEAN CELL VOLUME 87.3 fl (80-96); MEAN PLT VOLUME 7.6 fl (7.5-11.1); NEUT % 80.9 % (42.8-82.8); PLATELET COUNT 266 10^3/uL (134-434); RBC 4.91 M/mm3 (4.00-5.60); RDW 14.5 % (11.9-15.9); WHITE BLOOD COUNT 7.8 K/mm3 (4.0-10.0)
[2021-05-08 07:37] LABS: CALCIUM 8.8 mg/dL (8.5-10.1)
[2021-05-08 07:38] LABS: BLOOD UREA NITROGEN 16.4 mg/dL (7-18)
[2021-05-08 07:41] LABS: CREATININE 0.5 mg/dL (0.55-1.3)
[2021-05-09] MEDS ORDERED: cefTRIAXone SODIUM 1 GM VIAL ONE (09:11)
[2021-05-09] MEDS ORDERED: DEXTROSE 5%-WATER - 50 ML IVPB ONE (09:11)
[2021-05-09] MEDS: DEXTROSE 5%-0.45% SALINE 1,000 ML IV SCH (09:22)
[2021-05-09] MEDS: CEFTRIAXONE 1 GM in DEXTROSE 5%-WATER - 50 ML IVPB SCH (09:22)
[2021-05-09 14:28] VITALS: BMI 24.2
[2021-05-10] MEDS: DEXTROSE 5%-0.45% SALINE 1,000 ML IV SCH (04:57)
[2021-05-10 05:29] VITALS: PULSE 96
[2021-05-10] MEDS ORDERED: AMINO ACIDS/PROTEIN HYDROLYS 30 ML LIQUID.PKT PO SCH (08:00)
[2021-05-10] MEDS ORDERED: AMINO ACIDS/PROTEIN HYDROLYS 30 ML LIQUID.PKT GT SCH ×2 (08:14→11:00)
[2021-05-10] MEDS ORDERED: DEXTROSE 5%-WATER - 50 ML IVPB ONE (10:53)
[2021-05-10] MEDS ORDERED: cefTRIAXone SODIUM 1 GM VIAL ONE (10:53)
[2021-05-10] MEDS: CEFTRIAXONE 1 GM in DEXTROSE 5%-WATER - 50 ML IVPB SCH (10:56)
[2021-05-10 13:19] VITALS: BP 133/82; TEMP 98.5
== END 2021-05-10 21:38 | DRG 813 ==
LOC: JER 15:32 → JERBED 17:42 → J7W 23:25
PROVIDERS: ADMIT Internal Medicine; ATTEND Family Medicine
PROC: 0DH63UZ Insertion of Feeding Device into Stomach, Percutaneous Approach (ICD-10-PCS; principal; 2021-05-08)
PROC: BD12YZZ Fluoroscopy of Stomach using Other Contrast (ICD-10-PCS; 2021-05-08)
DX: T85.528A Displacement of other gastrointestinal prosthetic devices, implants and grafts, initial encounter (principal); L89.152 Pressure ulcer of sacral region, stage 2; N39.0 Urinary tract infection, site not specified; R53.2 Functional quadriplegia; R64 Cachexia; Y83.9 Surgical procedure, unspecified as the cause of abnormal reaction of the patient, or of later complication, without mention of misadventure at the time of the procedure; N40.0 Benign prostatic hyperplasia without lower urinary tract symptoms; Z68.24 Body mass index [BMI] 24.0-24.9, adult
CPT/HCPCS: 36415; 49440; 71045-TC-FY; 74018-TC-FY; 80048; 80053; 81003; 85025; 85610; 85730; 86850; 86900; 86901; 87086; 87186; 93005; 93010; 99285-25; C1769; C1887; C9803; U0003; U0005

== ENCOUNTER 2021-06-23 13:43 | Inpatient (IN) | payer OTHER ==
[2021-06-23] MEDS ORDERED: LACTATED RINGERS SOLUTION 1000 ML INFUS.BAG IV ONE (17:57)
[2021-06-23] MEDS ORDERED: ENOXAPARIN NA (PORCINE) 40 MG/0.4 ML DISP.SYRIN SQ SCH (18:30)
[2021-06-23] MEDS ORDERED: ENOXAPARIN NA (PORCINE) 40 MG/0.4 ML DISP.SYRIN SQ ONE (18:32)
[2021-06-23 18:35] LABS: HEMATOCRIT 45.9 % (35.4-49); HEMOGLOBIN 15.4 GM/dL (11.7-16.9); MCH 29.2 pg (25.7-33.7); MCHC 33.6 g/dl (32.0-35.9); MEAN CELL VOLUME 86.9 fl (80-96); MEAN PLT VOLUME 7.7 fl (7.5-11.1); PLATELET COUNT 292 10^3/uL (134-434); RBC 5.28 M/mm3 (4.00-5.60); RDW 14.9 % (11.9-15.9)
[2021-06-23 18:55] LABS: CHLORIDE 97 mmol/L (98-107)
[2021-06-23 18:57] LABS: ALBUMIN 2.6 g/dl (3.4-5.0); BLOOD UREA NITROGEN 20.4 mg/dL (7-18); CALCIUM 7.9 mg/dL (8.5-10.1); GLUCOSE,RANDOM 70 mg/dL (74-106)
[2021-06-23 19:00] LABS: CREATININE 0.8 mg/dL (0.55-1.3)
[2021-06-23 19:01] LABS: TOT PROT 11.2 g/dl (6.4-8.2)
[2021-06-23 19:08] LABS: SODIUM 108 mmol/L (136-145)
[2021-06-23 19:13] LABS: ANISOCYTOSIS 1+; MACROCYTOSIS 0; PLATELET ESTIMATE NORMAL
[2021-06-23] MEDS ORDERED: ACETAMINOPHEN 1000 MG/100 ML VIAL IVPB PRN (19:38)
[2021-06-23 19:58] LABS: BLOOD UREA NITROGEN 21.3 mg/dL (7-18); CALCIUM 8.6 mg/dL (8.5-10.1)
[2021-06-23 20:01] LABS: CREATININE 0.7 mg/dL (0.55-1.3)
[2021-06-23 20:31] LABS: ALBUMIN 3.1 g/dl (3.4-5.0); TOT PROT 7.2 g/dl (6.4-8.2)
[2021-06-23 21:07] LABS: EPI CELLS 20 /uL (0-25.1); HYALINE CASTS 3 /uL (0-3.1); URINE APPEARANCE CLOUDY; URINE BACTERIA 0 /uL (0-1359); URINE BILIRUBIN NEGATIVE (NEGATIVE); URINE COLOR YELLOW; URINE GLUCOSE (UA) NEGATIVE (NEGATIVE); URINE KETONE 4+ (NEGATIVE); URINE LEUK ESTERASE TRACE (NEGATIVE); URINE NITRITE NEGATIVE (NEGATIVE); URINE PROTEIN TRACE (NEGATIVE); URINE RBC 52 /uL (0-23.9); URINE WBC 10 /uL (0-25.8)
[2021-06-23] MEDS: DEXTROSE 5%-0.45% SALINE 1,000 ML IV SCH (23:01)
[2021-06-24] MEDS: DEXTROSE 5%-0.45% SALINE 1,000 ML IV SCH ×3 (03:15→20:11)
[2021-06-24] MEDS ORDERED: ALBUTEROL SO4 0.083% IH SOL 2.5 MG/3 ML VIAL.NEB. NEB PRN (04:14)
[2021-06-24] MEDS: FAMOTIDINE 20 MG/50 ML IVPB 20 MG/50 ML MG IVPB SCH (06:05)
[2021-06-24 09:23] LABS: BASO % 0.2 % (0-2.0); HEMATOCRIT 40.8 % (35.4-49); HEMOGLOBIN 13.6 GM/dL (11.7-16.9); LYMPH % 10.9 % (8-40); MCH 29.6 pg (25.7-33.7); MCHC 33.4 g/dl (32.0-35.9); MEAN CELL VOLUME 88.6 fl (80-96); MEAN PLT VOLUME 8.1 fl (7.5-11.1); NEUT % 83.9 % (42.8-82.8); PLATELET COUNT 264 10^3/uL (134-434); RDW 14.6 % (11.9-15.9); WHITE BLOOD COUNT 11.2 K/mm3 (4.0-10.0)
[2021-06-24 09:32] LABS: BLOOD UREA NITROGEN 22.8 mg/dL (7-18); CALCIUM 8.5 mg/dL (8.5-10.1); MAGNESIUM 2.2 mg/dL (1.8-2.4)
[2021-06-24 09:36] LABS: ALBUMIN 2.9 g/dl (3.4-5.0)
[2021-06-24 09:38] LABS: PHOSPHOROUS 3.3 mg/dL (2.5-4.9)
[2021-06-24 09:40] LABS: BILIRUBIN,TOTAL 0.9 mg/dL (0.2-1)
[2021-06-24 09:41] LABS: TOT PROT 6.6 g/dl (6.4-8.2)
[2021-06-24 09:46] LABS: CREATININE 0.7 mg/dL (0.55-1.3)
[2021-06-24] MEDS: ENOXAPARIN NA (PORCINE) 60 MG/0.6 ML DISP.SYRIN SQ SCH ×2 (10:04→21:59)
[2021-06-24] MEDS: ARTIFICIAL TEARS (POLYVINYL ALCOHOL) OPTH DROPS OU SCH (11:30)
[2021-06-24] MEDS ORDERED: AMINO ACIDS 4.25%/D5W 1,000 ML IV SCH (18:30)
[2021-06-25] MEDS: FAMOTIDINE 20 MG/50 ML IVPB 20 MG/50 ML MG IVPB SCH (06:05)
[2021-06-25] MEDS: ACETAMINOPHEN 1000 MG/100 ML VIAL IVPB PRN (06:22)
[2021-06-25 08:48] LABS: HEMATOCRIT 37.3 % (35.4-49); HEMOGLOBIN 12.8 GM/dL (11.7-16.9); MCH 29.8 pg (25.7-33.7); MCHC 34.3 g/dl (32.0-35.9); MEAN CELL VOLUME 87.1 fl (80-96); MEAN PLT VOLUME 8.2 fl (7.5-11.1); PLATELET COUNT 205 10^3/uL (134-434); RBC 4.28 M/mm3 (4.00-5.60); RDW 14.5 % (11.9-15.9); WHITE BLOOD COUNT 18.1 K/mm3 (4.0-10.0)
[2021-06-25 08:57] LABS: ADD RBC MORPHOLOGY YES; INR 1.16 (0.83-1.09); PROTHROMBIN TIME (PATIENT) 13.6 SEC (9.7-13.0)
[2021-06-25 09:00] LABS: ACTIVATED PTT 35.2 SECONDS (25.2-36.5)
[2021-06-25 09:11] LABS: ALBUMIN 2.6 g/dl (3.4-5.0); BLOOD UREA NITROGEN 25.8 mg/dL (7-18); CALCIUM 7.9 mg/dL (8.5-10.1)
[2021-06-25] MEDS: ASCORBIC ACID 500 MG TABLET (FP) PO SCH (09:13)
[2021-06-25 09:16] LABS: CREATININE 0.8 mg/dL (0.55-1.3)
[2021-06-25 09:17] LABS: TOT PROT 6.3 g/dl (6.4-8.2)
[2021-06-25] MEDS: ARTIFICIAL TEARS (POLYVINYL ALCOHOL) OPTH DROPS OU SCH (10:42)
[2021-06-25 11:33] LABS: ANISOCYTOSIS 1+; MACROCYTOSIS 0; OVALOCYTE 2+; PLATELET ESTIMATE NORMAL
[2021-06-25] MEDS ORDERED: CEFTRIAXONE 1 GM in DEXTROSE 5%-WATER - 50 ML IVPB SCH (11:45)
[2021-06-25] MEDS: ENOXAPARIN NA (PORCINE) 60 MG/0.6 ML DISP.SYRIN SQ SCH (11:51)
[2021-06-25] MEDS ORDERED: cefTRIAXone SODIUM 1 GM VIAL ONE (12:18)
[2021-06-25] MEDS ORDERED: DEXTROSE 5%-WATER - 50 ML IVPB ONE (12:18)
[2021-06-25] MEDS: KCL 10 MEQ IVPB 10 MEQ/100 ML INFUS.BAG IVPB SCH ×2 (17:13→20:49)
[2021-06-25] MEDS ORDERED: DEXTROSE 5%-WATER 100 ML IVPB ONE (17:40)
[2021-06-25] MEDS ORDERED: PIPERACILLIN/TAZOBACTAM 4.5 GM VIAL IVPB ONE (17:40)
[2021-06-25] MEDS: PIPERACILLIN/TAZOB 4.5 GM 4.5 GM in DEXTROSE 5%-WATER 100 ML IVPB SCH (18:46)
[2021-06-25] MEDS ORDERED: KCL 10 MEQ IVPB 10 MEQ/100 ML INFUS.BAG IVPB SCH (20:45)
[2021-06-26] MEDS ORDERED: PIPERACILLIN/TAZOBACTAM 4.5 GM VIAL IVPB ONE ×3 (01:16→17:30)
[2021-06-26] MEDS ORDERED: DEXTROSE 5%-WATER 100 ML IVPB ONE ×3 (01:16→17:30)
[2021-06-26] MEDS: PIPERACILLIN/TAZOB 4.5 GM 4.5 GM in DEXTROSE 5%-WATER 100 ML IVPB SCH ×3 (01:23→17:59)
[2021-06-26] MEDS: FAMOTIDINE 20 MG/50 ML IVPB 20 MG/50 ML MG IVPB SCH (06:03)
[2021-06-26 09:33] LABS: ALBUMIN 2.5 g/dl (3.4-5.0); BLOOD UREA NITROGEN 30.1 mg/dL (7-18); CALCIUM 8.4 mg/dL (8.5-10.1)
[2021-06-26 09:37] LABS: CREATININE 0.8 mg/dL (0.55-1.3)
[2021-06-26 09:38] LABS: BILIRUBIN,TOTAL 0.5 mg/dL (0.2-1); TOT PROT 6.1 g/dl (6.4-8.2)
[2021-06-26] MEDS: ASCORBIC ACID 500 MG TABLET (FP) PO SCH (10:18)
[2021-06-26 10:20] LABS: BASO % 0.3 % (0-2.0); HEMATOCRIT 37.9 % (35.4-49); HEMOGLOBIN 12.6 GM/dL (11.7-16.9); LYMPH % 6.8 % (8-40); MCH 29.7 pg (25.7-33.7); MCHC 33.2 g/dl (32.0-35.9); MEAN CELL VOLUME 89.4 fl (80-96); MEAN PLT VOLUME 8.2 fl (7.5-11.1); MONO % 4.6 % (3.8-10.2); NEUT % 87.3 % (42.8-82.8); PLATELET COUNT 206 10^3/uL (134-434); RBC 4.24 M/mm3 (4.00-5.60); RDW 14.6 % (11.9-15.9); WHITE BLOOD COUNT 12.2 K/mm3 (4.0-10.0)
[2021-06-26] MEDS: ARTIFICIAL TEARS (POLYVINYL ALCOHOL) OPTH DROPS OU SCH (10:45)
[2021-06-26 15:58] VITALS: BMI 18.6
[2021-06-26] MEDS: ENOXAPARIN NA (PORCINE) 60 MG/0.6 ML DISP.SYRIN SQ SCH (22:52)
[2021-06-27] MEDS ORDERED: PIPERACILLIN/TAZOBACTAM 4.5 GM VIAL IVPB ONE ×3 (02:14→16:44)
[2021-06-27] MEDS ORDERED: DEXTROSE 5%-WATER 100 ML IVPB ONE ×3 (02:15→16:44)
[2021-06-27] MEDS: PIPERACILLIN/TAZOB 4.5 GM 4.5 GM in DEXTROSE 5%-WATER 100 ML IVPB SCH ×3 (02:34→17:07)
[2021-06-27] MEDS: FAMOTIDINE 20 MG/50 ML IVPB 20 MG/50 ML MG IVPB SCH (06:06)
[2021-06-27] MEDS: ASCORBIC ACID 500 MG TABLET (FP) PO SCH (10:33)
[2021-06-27] MEDS: ENOXAPARIN NA (PORCINE) 60 MG/0.6 ML DISP.SYRIN SQ SCH (10:41)
[2021-06-27] MEDS: ARTIFICIAL TEARS (POLYVINYL ALCOHOL) OPTH DROPS OU SCH (10:42)
[2021-06-27] MEDS: ACETAMINOPHEN 1000 MG/100 ML VIAL IVPB PRN (12:06)
[2021-06-27 12:22] LABS: BASO % 0.2 % (0-2.0); EOS % 0.6 % (0-4.5); HEMATOCRIT 38.8 % (35.4-49); LYMPH % 9.6 % (8-40); MCH 29.5 pg (25.7-33.7); MCHC 33.4 g/dl (32.0-35.9); MEAN CELL VOLUME 88.3 fl (80-96); MEAN PLT VOLUME 8.3 fl (7.5-11.1); NEUT % 83.6 % (42.8-82.8); PLATELET COUNT 236 10^3/uL (134-434); RBC 4.39 M/mm3 (4.00-5.60); RDW 14.5 % (11.9-15.9); WHITE BLOOD COUNT 8.3 K/mm3 (4.0-10.0)
[2021-06-27 12:26] LABS: CALCIUM 8.2 mg/dL (8.5-10.1)
[2021-06-27 12:27] LABS: ALBUMIN 2.6 g/dl (3.4-5.0); BLOOD UREA NITROGEN 15.3 mg/dL (7-18)
[2021-06-27 12:30] LABS: CREATININE 0.6 mg/dL (0.55-1.3)
[2021-06-27 12:32] LABS: BILIRUBIN,TOTAL 0.4 mg/dL (0.2-1); TOT PROT 6.3 g/dl (6.4-8.2)
[2021-06-27] MEDS: KCL 10 MEQ IVPB 10 MEQ/100 ML INFUS.BAG IVPB SCH ×2 (18:10→20:03)
[2021-06-27] MEDS: ATORVASTATIN CA 10 MG TABLET (FP) PO SCH (22:07)
[2021-06-27] MEDS: MIRTAZAPINE 15 MG TABLET (FP) PEG SCH (22:07)
[2021-06-27] MEDS: APIXABAN 5 MG TABLET GT SCH (22:07)
[2021-06-28] MEDS ORDERED: DEXTROSE 5%-WATER 100 ML IVPB ONE ×3 (02:07→17:40)
[2021-06-28] MEDS ORDERED: PIPERACILLIN/TAZOBACTAM 4.5 GM VIAL IVPB ONE ×3 (02:07→17:39)
[2021-06-28] MEDS: PIPERACILLIN/TAZOB 4.5 GM 4.5 GM in DEXTROSE 5%-WATER 100 ML IVPB SCH ×3 (02:14→17:49)
[2021-06-28 08:53] LABS: BLOOD UREA NITROGEN 11.1 mg/dL (7-18); CALCIUM 8.4 mg/dL (8.5-10.1)
[2021-06-28 08:57] LABS: CREATININE 0.6 mg/dL (0.55-1.3)
[2021-06-28] MEDS ORDERED: PT OWN MED DRAWER 7, Y5N ONE (10:58)
[2021-06-28] MEDS: ASCORBIC ACID 500 MG TABLET (FP) GT SCH (11:00)
[2021-06-28] MEDS: APIXABAN 5 MG TABLET GT SCH ×2 (11:00→21:18)
[2021-06-28] MEDS: FAMOTIDINE 40 MG/5 ML ORAL SUSPENSION PEG SCH (11:00)
[2021-06-28] MEDS: ARTIFICIAL TEARS (POLYVINYL ALCOHOL) OPTH DROPS OU SCH (11:01)
[2021-06-28] MEDS: MIRTAZAPINE 15 MG TABLET (FP) PEG SCH (21:18)
[2021-06-28] MEDS: ATORVASTATIN CA 10 MG TABLET (FP) PO SCH (21:18)
[2021-06-29] MEDS: PIPERACILLIN/TAZOB 4.5 GM 4.5 GM in DEXTROSE 5%-WATER 100 ML IVPB SCH ×3 (02:09→17:59)
[2021-06-29] MEDS ORDERED: DEXTROSE 5%-WATER 100 ML IVPB ONE ×3 (02:58→17:49)
[2021-06-29] MEDS ORDERED: PIPERACILLIN/TAZOBACTAM 4.5 GM VIAL IVPB ONE ×3 (02:58→17:49)
[2021-06-29] MEDS: ACETAMINOPHEN 650 MG/20.3 ML ORAL SOLUTION (CUPS) GT PRN ×2 (05:28→09:54)
[2021-06-29 08:55] LABS: HEMATOCRIT 39.1 % (35.4-49); HEMOGLOBIN 12.8 GM/dL (11.7-16.9); MCH 28.7 pg (25.7-33.7); MCHC 32.8 g/dl (32.0-35.9); MEAN CELL VOLUME 87.3 fl (80-96); MEAN PLT VOLUME 8.1 fl (7.5-11.1); PLATELET COUNT 243 10^3/uL (134-434); RBC 4.47 M/mm3 (4.00-5.60); RDW 14.8 % (11.9-15.9); WHITE BLOOD COUNT 12.2 K/mm3 (4.0-10.0)
[2021-06-29 09:13] LABS: CALCIUM 8.5 mg/dL (8.5-10.1)
[2021-06-29 09:14] LABS: ALBUMIN 2.2 g/dl (3.4-5.0); BLOOD UREA NITROGEN 16.1 mg/dL (7-18)
[2021-06-29 09:17] LABS: CREATININE 0.7 mg/dL (0.55-1.3)
[2021-06-29 09:18] LABS: BILIRUBIN,TOTAL 0.3 mg/dL (0.2-1); TOT PROT 6.2 g/dl (6.4-8.2)
[2021-06-29] MEDS: ASCORBIC ACID 500 MG TABLET (FP) GT SCH (09:36)
[2021-06-29] MEDS: ARTIFICIAL TEARS (POLYVINYL ALCOHOL) OPTH DROPS OU SCH (09:36)
[2021-06-29] MEDS: APIXABAN 5 MG TABLET GT SCH ×2 (09:36→21:02)
[2021-06-29] MEDS: FAMOTIDINE 40 MG/5 ML ORAL SUSPENSION PEG SCH (09:42)
[2021-06-29 10:52] LABS: ANISOCYTOSIS 1+; MACROCYTOSIS 0; PLATELET ESTIMATE NORMAL; TOXIC GRANULATION 1+
[2021-06-29] MEDS ORDERED: AZTREONAM 2 GM/10 ML SYRINGE (RESTRICTED TO ID) IVPUSH SCH (12:45)
[2021-06-29] MEDS ORDERED: POLYETHYLENE GLYCOL (HEALTHYLAX) 3350 17 GM PACKET PEG ONE (12:52)
[2021-06-29] MEDS: AZTREONAM 2 GM in DEXTROSE 5%-WATER 100 ML IVPB SCH ×2 (13:24→18:31)
[2021-06-29] MEDS ORDERED: PT OWN MED DRAWER 7, Y5N ONE (17:49)
[2021-06-29] MEDS: ATORVASTATIN CA 10 MG TABLET (FP) PO SCH (21:02)
[2021-06-29] MEDS: MIRTAZAPINE 15 MG TABLET (FP) PEG SCH (21:02)
[2021-06-30] MEDS ORDERED: PT OWN MED DRAWER 7, Y5N ONE ×3 (01:07→23:05)
[2021-06-30] MEDS ORDERED: PIPERACILLIN/TAZOBACTAM 4.5 GM VIAL IVPB ONE ×3 (01:08→16:58)
[2021-06-30] MEDS ORDERED: DEXTROSE 5%-WATER 100 ML IVPB ONE ×3 (01:08→16:58)
[2021-06-30] MEDS: PIPERACILLIN/TAZOB 4.5 GM 4.5 GM in DEXTROSE 5%-WATER 100 ML IVPB SCH ×3 (01:22→17:02)
[2021-06-30] MEDS: AZTREONAM 2 GM in DEXTROSE 5%-WATER 100 ML IVPB SCH ×3 (01:23→17:43)
[2021-06-30] MEDS: APIXABAN 5 MG TABLET GT SCH ×2 (09:51→22:45)
[2021-06-30] MEDS: FAMOTIDINE 40 MG/5 ML ORAL SUSPENSION PEG SCH (09:51)
[2021-06-30] MEDS: ASCORBIC ACID 500 MG TABLET (FP) GT SCH (09:51)
[2021-06-30] MEDS: ARTIFICIAL TEARS (POLYVINYL ALCOHOL) OPTH DROPS OU SCH (09:52)
[2021-06-30] MEDS: ACETAMINOPHEN 650 MG/20.3 ML ORAL SOLUTION (CUPS) GT PRN (17:02)
[2021-06-30] MEDS: ATORVASTATIN CA 10 MG TABLET (FP) PO SCH (22:45)
[2021-06-30] MEDS: MIRTAZAPINE 15 MG TABLET (FP) PEG SCH (22:45)
[2021-07-01] MEDS ORDERED: PIPERACILLIN/TAZOBACTAM 4.5 GM VIAL IVPB ONE ×3 (00:59→16:22)
[2021-07-01] MEDS ORDERED: DEXTROSE 5%-WATER 100 ML IVPB ONE ×3 (01:00→16:22)
[2021-07-01] MEDS: AZTREONAM 2 GM in DEXTROSE 5%-WATER 100 ML IVPB SCH ×3 (01:50→17:58)
[2021-07-01] MEDS: PIPERACILLIN/TAZOB 4.5 GM 4.5 GM in DEXTROSE 5%-WATER 100 ML IVPB SCH ×3 (02:00→17:00)
[2021-07-01] MEDS ORDERED: PT OWN MED DRAWER 7, Y5N ONE (09:18)
[2021-07-01 09:32] LABS: HEMATOCRIT 35.5 % (35.4-49); MCH 29.7 pg (25.7-33.7); MCHC 33.8 g/dl (32.0-35.9); MEAN PLT VOLUME 8.3 fl (7.5-11.1); PLATELET COUNT 310 10^3/uL (134-434); RBC 4.03 M/mm3 (4.00-5.60); RDW 14.6 % (11.9-15.9); WHITE BLOOD COUNT 11.1 K/mm3 (4.0-10.0)
[2021-07-01 09:38] LABS: BLOOD UREA NITROGEN 19.4 mg/dL (7-18)
[2021-07-01 09:39] LABS: CALCIUM 7.9 mg/dL (8.5-10.1)
[2021-07-01 09:43] LABS: CREATININE 0.7 mg/dL (0.55-1.3)
[2021-07-01] MEDS: APIXABAN 5 MG TABLET GT SCH ×2 (09:43→22:05)
[2021-07-01] MEDS: ARTIFICIAL TEARS (POLYVINYL ALCOHOL) OPTH DROPS OU SCH (09:43)
[2021-07-01] MEDS: FAMOTIDINE 40 MG/5 ML ORAL SUSPENSION PEG SCH (09:43)
[2021-07-01 09:44] LABS: BILIRUBIN,TOTAL 0.2 mg/dL (0.2-1); TOT PROT 6.2 g/dl (6.4-8.2)
[2021-07-01] MEDS: ASCORBIC ACID 500 MG TABLET (FP) GT SCH (09:44)
[2021-07-01 13:32] LABS: ANISOCYTOSIS 0; MACROCYTOSIS 0; PLATELET ESTIMATE NORMAL
[2021-07-01] MEDS: MIRTAZAPINE 15 MG TABLET (FP) PEG SCH (22:05)
[2021-07-01] MEDS: ATORVASTATIN CA 10 MG TABLET (FP) PO SCH (22:05)
[2021-07-02] MEDS ORDERED: PIPERACILLIN/TAZOBACTAM 4.5 GM VIAL IVPB ONE ×3 (01:00→16:54)
[2021-07-02] MEDS ORDERED: DEXTROSE 5%-WATER 100 ML IVPB ONE ×3 (01:00→16:54)
[2021-07-02] MEDS ORDERED: PT OWN MED DRAWER 7, Y5N ONE ×2 (01:01→16:54)
[2021-07-02] MEDS: PIPERACILLIN/TAZOB 4.5 GM 4.5 GM in DEXTROSE 5%-WATER 100 ML IVPB SCH ×2 (01:46→09:52)
[2021-07-02] MEDS: AZTREONAM 2 GM in DEXTROSE 5%-WATER 100 ML IVPB SCH ×3 (01:49→17:00)
[2021-07-02] MEDS: FAMOTIDINE 40 MG/5 ML ORAL SUSPENSION PEG SCH (09:51)
[2021-07-02] MEDS: APIXABAN 5 MG TABLET GT SCH ×2 (09:52→21:47)
[2021-07-02] MEDS: ASCORBIC ACID 500 MG TABLET (FP) GT SCH (09:53)
[2021-07-02] MEDS: ARTIFICIAL TEARS (POLYVINYL ALCOHOL) OPTH DROPS OU SCH (09:53)
[2021-07-02] MEDS: POLYETHYLENE GLYCOL (HEALTHYLAX) 3350 17 GM PACKET PO SCH (13:37)
[2021-07-02] MEDS: ATORVASTATIN CA 10 MG TABLET (FP) PO SCH (21:47)
[2021-07-02] MEDS: MIRTAZAPINE 15 MG TABLET (FP) PEG SCH (21:47)
[2021-07-03] MEDS ORDERED: PT OWN MED DRAWER 7, Y5N ONE ×2 (02:07→08:30)
[2021-07-03] MEDS: AZTREONAM 2 GM in DEXTROSE 5%-WATER 100 ML IVPB SCH ×2 (02:46→10:03)
[2021-07-03] MEDS: POLYETHYLENE GLYCOL (HEALTHYLAX) 3350 17 GM PACKET PO SCH (10:02)
[2021-07-03] MEDS: APIXABAN 5 MG TABLET GT SCH (10:02)
[2021-07-03] MEDS: FAMOTIDINE 40 MG/5 ML ORAL SUSPENSION PEG SCH (10:03)
[2021-07-03] MEDS: ASCORBIC ACID 500 MG TABLET (FP) GT SCH (10:03)
[2021-07-03] MEDS: ARTIFICIAL TEARS (POLYVINYL ALCOHOL) OPTH DROPS OU SCH (10:04)
[2021-07-03] MEDS ORDERED: BISACODYL 10 MG SUPP.RECT PR PRN (10:21)
[2021-07-03 15:59] VITALS: BP 139/92; PULSE 83; TEMP 98.7
== END 2021-07-03 15:27 | DRG 813 ==
LOC: JER 13:43 → JERBED 18:04 → J5S 06-24 02:43
PROVIDERS: ADMIT Internal Medicine; ATTEND Family Medicine
PROC: 0DH63UZ Insertion of Feeding Device into Stomach, Percutaneous Approach (ICD-10-PCS; principal; 2021-06-25)
PROC: BD12YZZ Fluoroscopy of Stomach using Other Contrast (ICD-10-PCS; 2021-06-25)
DX: T85.528A Displacement of other gastrointestinal prosthetic devices, implants and grafts, initial encounter (principal); R64 Cachexia; J96.10 Chronic respiratory failure, unspecified whether with hypoxia or hypercapnia; R13.10 Dysphagia, unspecified; R53.2 Functional quadriplegia; Z93.1 Gastrostomy status; D72.829 Elevated white blood cell count, unspecified; E43 Unspecified severe protein-calorie malnutrition; Z68.1 Body mass index [BMI] 19.9 or less, adult; N40.0 Benign prostatic hyperplasia without lower urinary tract symptoms; Y83.9 Surgical procedure, unspecified as the cause of abnormal reaction of the patient, or of later complication, without mention of misadventure at the time of the procedure
CPT/HCPCS: 36415; 49440; 71045-TC-FY; 80048; 80053; 81003; 82962; 83735; 84100; 85025; 85610; 85730; 87040; 87070; 87086; 87186; 87205; 93005; 93010; 94640; 99285-25; C9803; J0131; U0003; U0005